=== PATIENT | male | born 1970 | race African-American/Black ===

== ENCOUNTER 2019-11-29 16:56 | Emergency (ER) | payer SELFPAY ==
[~2019-11-29] VITALS: Ht 180.3 cm; Wt 97.5 kg
[2019-11-29] MEDS ORDERED: ONDANSETRON HCL INJ 2MG/ML 2ML 2 MG/ML VIAL IV STA (17:27)
[2019-11-29] MEDS ORDERED: MORPHINE SULFATE INJ 4 MG/ML INJ 1ML IV PRN (17:30)
[2019-11-29] MEDS ORDERED: MORPHINE SULFATE INJ 4 MG/ML INJ 1ML ONE (17:32)
[2019-11-29] MEDS ORDERED: ONDANSETRON HCL INJ 2MG/ML 2ML 2 MG/ML VIAL ONE (17:32)
--- NOTE | 2019-11-29 18:12 | Emergency Department Note ---
History of Present Illnes History of Present Illness Chief Complaint: Genitourinary History of Present Illness This is a 49 year old male arrives to the ED with concerns of interaction for nearly 18 hours. Chief Complaint Comment Patient in from home with reports of an erection lasting greater than 3 hours. Patient states that he used a medication for erectile dysfuction last night about 2129 and has had an erection since. Patient reports pain to the area. Historian: Patient Arrival Mode: Car Onset (how long ago): hour(s) Radiation: Reports non-radiation Severity: mild Onset quality: sudden Duration (how long): hour(s) Timing of current episode: constant Progression: unchanged Chronicity: new Past Medical/Family History Physician Review I have reviewed the patient's past medical and family history. Any updates have been documented here. Past Medical History Recent Fever: No Clinical Suspicion of Infectio: No New/Unexplained Change in Ment: No Past Medical History: Hypertension, Diabetes Past Surgical History: None Social History Smoking Cessation: Never Smoker Counseling Performed: No Alcohol Use: Occasional Any Illegal Drug Use: No Physically hurt or threatened: No Other Any Pre-Existing Lines (PICC,: No Review of Systems Review of Systems Constitutional: Reports no symptoms EENTM: Reports no symptoms Cardiovascular: Reports no symptoms Respiratory: Reports no symptoms Gastrointestinal: Reports no symptoms Genitourinary: Reports as per HPI Musculoskeletal: Reports no symptoms Integumentary: Reports no symptoms Neurological: Reports no symptoms Psychological: Reports no symptoms Endocrine: Reports no symptoms Hematological/Lymphatic: Reports no symptoms Physical Exam Related Data Allergies: Coded Allergies: No Known Allergies (Unverified , 11/29/19) Triage Vital Signs Vital Signs Date Time Temp Pulse Resp B/P (MAP) Pulse Ox O2 Delivery O2 Flow Rate FiO2 11/29/19 17:02 98.6 107 18 176/111 100 Vital signs reviewed: Yes Physical Exam CONSTITUTIONAL Constitutional: Present well-developed, Present well-nourished HENT HENT: Present normocephalic, Present atraumatic, Present oropharynx clear/moist, Present nose normal HENT L/R: Present left ext ear normal, Present right ext ear normal EYES Eyes: Reports PERRL, Reports conjunctivae normal NECK Neck: Present ROM normal PULMONARY Pulmonary: Present effort normal, Present breath sounds normal CARDIOVASCULAR Cardiovascular: Present regular rhythm, Present heart sounds normal, Present capillary refill normal, Present normal rate GASTROINTESTINAL Abdominal: Present soft, Present nontender, Present bowel sounds normal GENITOURINARY Genitourinary: Absent penis normal SKIN Skin: Present warm, Present dry MUSCULOSKELETAL Musculoskeletal: Present ROM normal NEUROLOGICAL Neurological: Present alert, Present oriented x 3, Present no gross motor or sensory deficits PSYCHOLOGICAL Psychological: Present mood/affect normal, Present judgement normal Procedures Penile Procedure Time out performed: Yes Indication: priapism management Procedural sedation: No Sedation/analgesia: opioids Priapism management: aspiration Patient tolerated procedure: well Complications: other Additional comments 700 mL of blood aspirated, erection ceased Critical Care Time Total Critical Care Time (min): 35 Critical care time exclusive o: separately billable procedures Critcal care necessary due to: other ( emergency) Assessment & Plan Medical Decision Making MDM 49-year-old male arrives to the ED with an erection for greater than 18 hrs. erection drained with 700 mL of blood aspirated. Patient felt better, erection resolved. Assessment & Plan Final Impression: (1) Priapism Depart Disposition: HOME, SELF-CARE Last Vital Signs Date Time Temp Pulse Resp B/P (MAP) Pulse Ox O2 Delivery O2 Flow Rate FiO2 11/29/19 17:02 98.6 107 18 176/111 100 Medications in the ED Morphine Sulfate 4 mg STK-MED ONCE .ROUTE ; Start 11/29/19 at 17:32; Stop 11/29/19 at 17:26; Status DC Ondansetron HCl 4 mg STK-MED ONCE .ROUTE ; Start 11/29/19 at 17:32; Stop 11/29/19 at 17:26; Status DC Ondansetron HCl 4 mg NOW STAT IV Last administered on 11/29/19at 17:30; Admin Dose 4 MG; Start 11/29/19 at 17:27; Stop 11/29/19 at 17:32; Status DC Morphine Sulfate 4 mg NOW PRN IV SEVERE PAIN (7-10) Last administered on 11/29/19at 17:30; Admin Dose 4 MG; Start 11/29/19 at 17:30; Stop 12/06/19 at 17:29 SONIA BIGGS DO Nov 29, 2019 18:12
== END 2019-11-29 18:39 | disposition home or self-care (01) ==
LOC: ER 18:21
DX: N48.30 Priapism, unspecified (principal); I10 Essential (primary) hypertension; E11.9 Type 2 diabetes mellitus without complications
CPT/HCPCS: 54220; 99283; J2270; J2405